=== PATIENT | male | born 1970 | race Caucasian/White ===

== ENCOUNTER 2017-11-11 11:08 | Emergency (ER) | payer OTHER ==
[~2017-11-11] VITALS: Ht 180.3 cm; Wt 84.6 kg
[2017-11-11 12:14] LABS: BASOPHILS # (AUTO) 0.1 X10'3 (0-0.2); BASOPHILS % (AUTO) 0.7 % (0-1); EOSINOPHILS # (AUTO) 0.1 X10'3 (0-0.9); EOSINOPHILS % (AUTO) 1.7 % (0-6); HEMATOCRIT 45.6 % (42.0-52.0); HEMOGLOBIN 15.6 g/dl (14.0-17.9); LYMPHOCYTES # (AUTO) 1.8 X10'3 (1.1-4.8); LYMPHOCYTES % (AUTO) 20.3 % (21-51); MEAN CORPUSCULAR HEMOGLOBIN 32.2 PG (27.0-31.0); MEAN CORPUSCULAR HGB CONC 34.1 % (33.0-36.5); MEAN CORPUSCULAR VOLUME 94.5 FL (78-98); MEAN PLATELET VOLUME 6.9 FL (7.4-10.4); MONOCYTES # (AUTO) 0.5 X10'3 (0-0.9); MONOCYTES % (AUTO) 5.2 % (2-12); NEUTROPHILS # (AUTO) 6.3 X10'3 (1.8-7.7); NEUTROPHILS % (AUTO) 72.1 % (42-75); PLATELET COUNT 309 X10'3 (140-440); RED BLOOD COUNT 4.83 X10'6 (4.70-6.10); RED CELL DISTRIBUTION WIDTH 12.6 % (11.5-14.5); WHITE BLOOD COUNT 8.7 X10'3 (4.5-11.0)
[2017-11-11 12:23] LABS: PARTIAL THROMBOPLASTIN TIME 30 SECONDS (22-32); PROTHROMBIN TIME 10.3 SECONDS (9.0-12.0)
[2017-11-11 12:29] LABS: ALANINE AMINOTRANSFERASE 29 U/L (12-78); ALBUMIN 3.9 G/DL (3.4-5.0); ALBUMIN/GLOBULIN RATIO 0.9 (1.1-1.5); ALKALINE PHOSPHATASE 102 IU/L (46-116); ANION GAP 11 (8-16); ASPARTATE AMINO TRANSFERASE 18 U/L (10-37); BILIRUBIN,TOTAL 0.5 MG/DL (0.1-1.0); BLOOD UREA NITROGEN 18 MG/DL (7-18); BUN/CREATININE RATIO 19.8 (5.4-32.0); CALCIUM 9.5 MG/DL (8.5-10.1); CHLORIDE 106 MMOL/L (99-107); CREATININE 0.91 MG/DL (0.60-1.10); GLUCOSE 89 MG/DL (70-104); SODIUM 141 MMOL/L (135-145); TOTAL CARBON DIOXIDE 24.5 MMOL/L (24-32); TOTAL PROTEIN 8.3 G/DL (6.4-8.2); eGFR 89 ML/MIN
[2017-11-11 13:31] VITALS: BP 115/97
== END 2017-11-11 13:33 | disposition home or self-care (01) ==
LOC: ER 11:09
DX: H93.13 Tinnitus, bilateral (principal)
CPT/HCPCS: 36415; 71045; 80053; 84484; 85025; 85610; 85730; 93005; 99285

== ENCOUNTER 2018-06-16 08:31 | Outpatient (CLI) | payer OTHER ==
[2018-06-16 09:12] LABS: CLARITY,URINE CLEAR (Clear); COLOR,URINE YELLOW (Yellow); GLUCOSE, URINE NEGATIVE (Neg); KETONES,URINE NEGATIVE (Neg); LEUKOCYTE ESTERASE ,URINE NEGATIVE (Neg); NITRITES, URINE NEGATIVE (Neg); OCCULT BLOOD,URINE NEGATIVE (Neg); PROTEIN,URINE NEGATIVE (Neg); UROBILINOGEN,URINE 0.2 E.U/dL (0.2-1.0)
[2018-06-16 09:13] LABS: UA COLLECTION TYPE VOIDED
[2018-06-16 09:26] LABS: BASOPHILS # (AUTO) 0.1 X10'3 (0-0.2); BASOPHILS % (AUTO) 0.9 % (0-1); EOSINOPHILS # (AUTO) 0.2 X10'3 (0-0.9); EOSINOPHILS % (AUTO) 2.4 % (0-6); HEMATOCRIT 44.6 % (42.0-52.0); HEMOGLOBIN 15.3 g/dl (14.0-17.9); LYMPHOCYTES # (AUTO) 2.1 X10'3 (1.1-4.8); LYMPHOCYTES % (AUTO) 24.6 % (21-51); MEAN CORPUSCULAR HEMOGLOBIN 32.6 PG (27.0-31.0); MEAN CORPUSCULAR HGB CONC 34.3 % (33.0-36.5); MEAN CORPUSCULAR VOLUME 94.9 FL (78-98); MEAN PLATELET VOLUME 6.9 FL (7.4-10.4); MONOCYTES # (AUTO) 0.6 X10'3 (0-0.9); MONOCYTES % (AUTO) 6.8 % (2-12); NEUTROPHILS # (AUTO) 5.4 X10'3 (1.8-7.7); NEUTROPHILS % (AUTO) 65.3 % (42-75); PLATELET COUNT 338 X10'3 (140-440); RED BLOOD COUNT 4.71 X10'6 (4.70-6.10); RED CELL DISTRIBUTION WIDTH 12.1 % (11.5-14.5); WHITE BLOOD COUNT 8.4 X10'3 (4.5-11.0)
[2018-06-16 09:36] LABS: ALANINE AMINOTRANSFERASE 33 U/L (12-78); ALBUMIN 3.7 G/DL (3.4-5.0); ALBUMIN/GLOBULIN RATIO 0.9 (1.1-1.5); ALKALINE PHOSPHATASE 105 IU/L (46-116); ANION GAP 7 (8-16); ASPARTATE AMINO TRANSFERASE 20 U/L (10-37); BILIRUBIN,TOTAL 0.3 MG/DL (0.1-1.0); BLOOD UREA NITROGEN 15 MG/DL (7-18); CALCIUM 8.9 MG/DL (8.5-10.1); CHLORIDE 104 MMOL/L (99-107); CHOL/HDL RATIO 5.6 (0.00-4.99); CHOLESTEROL 247 MG/DL (0-200); CREATININE 0.88 MG/DL (0.60-1.10); GLUCOSE 104 MG/DL (70-104); HDL CHOLESTEROL 44 MG/DL (35-60); LDL CHOLESTEROL 183 MG/DL (50-100); POTASSIUM 4.1 MMOL/L (3.5-5.1); SODIUM 141 MMOL/L (135-145); TOTAL CARBON DIOXIDE 30.1 MMOL/L (24-32); TRIGLYCERIDES 118 MG/DL (20-135); eGFR > 90 ML/MIN
== END 2018-06-16 23:59 | disposition home or self-care (01) ==
LOC: LAB 08:31
PROVIDERS: ATTEND Family Medicine
DX: Z76.89 Persons encountering health services in other specified circumstances (principal); E78.5 Hyperlipidemia, unspecified; F17.200 Nicotine dependence, unspecified, uncomplicated
CPT/HCPCS: 36415; 80053; 80061; 81003; 84439; 84443; 85025

== ENCOUNTER 2018-09-22 08:19 | Outpatient (CLI) | payer OTHER ==
[2018-09-22 09:23] LABS: CHOL/HDL RATIO 4.9 (0.00-4.99); CHOLESTEROL 216 MG/DL (0-200); HDL CHOLESTEROL 44 MG/DL (35-60); LDL CHOLESTEROL 158 MG/DL (50-100); TRIGLYCERIDES 86 MG/DL (20-135)
== END 2018-09-22 23:59 | disposition home or self-care (01) ==
LOC: RAD 08:19
PROVIDERS: ATTEND Family Medicine
DX: S46.112A Strain of muscle, fascia and tendon of long head of biceps, left arm, initial encounter (principal); E78.5 Hyperlipidemia, unspecified; X58.XXXA Exposure to other specified factors, initial encounter; Y93.89 Activity, other specified; Y92.89 Other specified places as the place of occurrence of the external cause; Y99.8 Other external cause status
CPT/HCPCS: 36415; 73030; 80061

== ENCOUNTER 2018-11-11 12:38 | Outpatient (CLI) | payer OTHER | END 2018-11-11 23:59 | disposition home or self-care (01) | LOC: RAD 12:38 | PROVIDERS: ATTEND Family Medicine | DX: M25.521 Pain in right elbow (principal) | CPT/HCPCS: 73221 ==

== ENCOUNTER 2019-08-25 10:36 | Inpatient (IN) | payer OTHER ==
[2019-08-25] VITALS (17 sets, daily range): BP systolic 124–180; BP diastolic 71–109
[~2019-08-25] VITALS: Ht 172.7 cm; Wt 85.5 kg
[~2019-08-25 10:36] MED LIST: CYCL-1 PO; DULO30CA52 PO; HYDR-4383 PO; KETO10TA2 PO; amiodarone 50MG/ML inj IV ONE; aspirin 81mg tab.chew ONE; heparin 10,000 units/1 ML INJ ONE
[2019-08-25] MEDS ORDERED: ondansetron/PF 4mg/2ml inj IV ONE (10:45)
[2019-08-25] MEDS ORDERED: morphine 2 MG/ML inj. syringe IV ONE ×2 (10:45→23:15)
[2019-08-25] MEDS ORDERED: iohexol 350 MG/ML 50ML vial IV ONE (10:48)
[2019-08-25] MEDS ORDERED: heparin 1,000unit/ml 10ml vial 10 ML ONE (10:48)
[2019-08-25] MEDS ORDERED: LIDOcaine 1% (10mg/ml)w/preservative injection 20ml MDV ONE (10:48)
[2019-08-25] MEDS ORDERED: midazolam 2 mg/2 ml injection ONE (10:48)
[2019-08-25] MEDS ORDERED: iohexol 350 MG/1 ML 200ml bottle ONE (10:48)
[2019-08-25] MEDS ORDERED: nitroGLYCERIN-Tridil 50MG/D5W 250 ML IV ONE (10:48)
[2019-08-25] MEDS ORDERED: fentaNYL/PF 50MCG/1 ML 2ML syringe ONE ×3 (10:48→11:48)
--- NOTE | 2019-08-25 10:54 | NUR ---
PLACED PT. ON TRANSPORT MONITOR WITH PALLET REPAIRER PRESENT, PRIOR TO LEAVING ROOM 3, PT. WENT INTO VFIB AT 1054, PT. WAS SHOCKED AT 120J, PT. WAS SUSTAINING VFIB, SHOCKED AT 150J, PT. WAS STILL IN VFIB. SHOCKED 200J. PT. RHYTHM RETURNED. PER BAYLEE, GIVE 150MG OF AMIODARONE. PT. TAKEN TO FIRE INFORMATION OFFICER WITH TECH AND 2 RN'S. Addendum: 08/25/19 at 1119 by GEORGIE PALLET REPAIRER DELIVED THE SHOCKS.
[2019-08-25] MEDS ORDERED: heparin 10,000 units/1 ML INJ IV ONE (10:55)
[2019-08-25] MEDS ORDERED: atorvastatin 20mg tablet PO SCH (10:55)
[2019-08-25 10:59] LABS: BASOPHILS # (AUTO) 0.1 X10'3 (0-0.2); BASOPHILS % (AUTO) 0.7 % (0-1); EOSINOPHILS # (AUTO) 0.3 X10'3 (0-0.9); EOSINOPHILS % (AUTO) 2.5 % (0-6); HEMOGLOBIN 15.3 g/dl (14.0-17.9); LYMPHOCYTES # (AUTO) 3.2 X10'3 (1.1-4.8); LYMPHOCYTES % (AUTO) 24.8 % (21-51); MEAN CORPUSCULAR HEMOGLOBIN 32.7 PG (27.0-31.0); MEAN CORPUSCULAR HGB CONC 33.9 g/dL (33.0-36.5); MEAN CORPUSCULAR VOLUME 96.3 FL (78-98); MEAN PLATELET VOLUME 6.7 FL (7.4-10.4); MONOCYTES % (AUTO) 7.4 % (2-12); NEUTROPHILS # (AUTO) 8.4 X10'3 (1.8-7.7); NEUTROPHILS % (AUTO) 64.6 % (42-75); PLATELET COUNT 343 X10'3 (140-440); RED BLOOD COUNT 4.67 X10'6 (4.70-6.10); RED CELL DISTRIBUTION WIDTH 12.6 % (11.5-14.5)
[2019-08-25] MEDS ORDERED: amiodarone/D5 360MG/200ML BAG 200 ML IV ONE (11:01)
[2019-08-25 11:15] LABS: ALANINE AMINOTRANSFERASE 33 U/L (12-78); ALBUMIN 3.8 G/DL (3.4-5.0); ALBUMIN/GLOBULIN RATIO 0.9 (1.1-1.5); ALKALINE PHOSPHATASE 100 IU/L (46-116); ANION GAP 11 (8-16); ASPARTATE AMINO TRANSFERASE 19 U/L (10-37); BILIRUBIN,TOTAL 0.3 MG/DL (0.1-1.0); BLOOD UREA NITROGEN 13 MG/DL (7-18); BUN/CREATININE RATIO 13.4 (5.4-32.0); CALCIUM 9.2 MG/DL (8.5-10.1); CHLORIDE 104 MMOL/L (99-107); CREATININE 0.97 MG/DL (0.60-1.10); GLUCOSE 120 MG/DL (70-104); POTASSIUM 3.5 MMOL/L (3.5-5.1); SODIUM 139 MMOL/L (135-145); TOTAL CARBON DIOXIDE 24.2 MMOL/L (24-32); TOTAL PROTEIN 7.9 G/DL (6.4-8.2); eGFR 82 ML/MIN
[2019-08-25] MEDS ORDERED: tirofiban 12.5mg in NS 250mL 250 ML IV ONE (11:15)
[2019-08-25] MEDS ORDERED: heparin 25,000 UNIT/250ml bag 250 ML IV ONE (11:21)
[2019-08-25] MEDS ORDERED: atropine 0.1mg/ml 10ml syringe ONE (11:37)
[2019-08-25] MEDS ORDERED: iohexol 350MG/ML 100ml bottle IV ONE (11:45)
[2019-08-25] MEDS ORDERED: ticagrelor 90mg tablet ONE (11:50)
[2019-08-25] MEDS: heparin 25,000 UNIT/250ml bag 250 ML IV SCH ×8 (12:40→14:37)
[2019-08-25] MEDS ORDERED: normal saline 1000ml 1,000 ML IV SCH (12:40)
[2019-08-25] MEDS ORDERED: proCHLORperazine 10 MG/2 ml inj IV PRN (12:45)
[2019-08-25] MEDS ORDERED: acetaminophen 325mg tablet PO PRN (12:45)
[2019-08-25] MEDS ORDERED: OXAZEpam 15mg capsule PO PRN (12:45)
[2019-08-25] MEDS ORDERED: cyclobenzaprine 10mg tablet PO PRN (12:45)
[2019-08-25] MEDS ORDERED: magnesium hydroxide 30ml (MOM) UD suspension PO PRN (12:45)
[2019-08-25] MEDS: tirofiban 5mg in NS 100mL 100 ML IV SCH ×2 (12:50→22:09)
[2019-08-25] MEDS: HYDROcodone/acetaminophen 10/325mg tab PO PRN ×3 (12:52→19:42)
[2019-08-25] MEDS ORDERED: lisinopril 5mg tablet PO SCH (13:45)
[2019-08-25] MEDS ORDERED: hydrALAZINE 20mg/ml inj. IV PRN (13:45)
[2019-08-25] MEDS: metoprolol succinate 25mg (24-HOUR) SR. Tablet PO SCH (13:53)
[2019-08-25] MEDS: aspirin 81mg tab.chew PO SCH (14:18)
[2019-08-25] MEDS ORDERED: heparin 25,000 UNIT/250ml bag 250 ML IV SCH (15:05)
[2019-08-25] MEDS: amiodarone/D5 360MG/200ML BAG 200 ML IV SCH (16:01)
--- NOTE | 2019-08-25 18:33 | NUR ---
Problems reprioritized. Patient report given, questions answered & plan of care reviewed with Pranav WEST.
[2019-08-25] MEDS: ticagrelor 90mg tablet PO SCH (19:36)
[2019-08-25] MEDS: docusate sod 100mg capsule PO SCH (19:36)
[2019-08-26] VITALS (17 sets, daily range): BP systolic 100–148; BP diastolic 3–83
[2019-08-26] MEDS: HYDROcodone/acetaminophen 10/325mg tab PO PRN ×5 (00:20→16:46)
--- NOTE | 2019-08-26 00:58 | NUR ---
Heparin drip shut off at 2200. ACT checked- 125. Arterial sheath to right groin pulled at 2340. Manual pressure held for 20 min. Femstop applied at 0000. Upon removing dressing, prior to pulling sheath, a small hematoma was found. Patient tolerated procedure well. No bleeding.
[2019-08-26] MEDS: amiodarone/D5 360MG/200ML BAG 200 ML IV SCH (02:44)
[2019-08-26] MEDS: tirofiban 5mg in NS 100mL 100 ML IV SCH ×2 (03:58→10:27)
[2019-08-26 06:14] LABS: BASOPHILS % (AUTO) 0.2 % (0-1); EOSINOPHILS # (AUTO) 0.1 X10'3 (0-0.9); EOSINOPHILS % (AUTO) 0.8 % (0-6); HEMATOCRIT 39.9 % (42.0-52.0); HEMOGLOBIN 13.5 g/dl (14.0-17.9); LYMPHOCYTES # (AUTO) 1.5 X10'3 (1.1-4.8); LYMPHOCYTES % (AUTO) 11.7 % (21-51); MEAN CORPUSCULAR HEMOGLOBIN 32.5 PG (27.0-31.0); MEAN CORPUSCULAR HGB CONC 33.7 g/dL (33.0-36.5); MEAN CORPUSCULAR VOLUME 96.2 FL (78-98); MONOCYTES % (AUTO) 7.6 % (2-12); NEUTROPHILS # (AUTO) 10.1 X10'3 (1.8-7.7); NEUTROPHILS % (AUTO) 79.7 % (42-75); PLATELET COUNT 268 X10'3 (140-440); RED BLOOD COUNT 4.15 X10'6 (4.70-6.10); RED CELL DISTRIBUTION WIDTH 12.5 % (11.5-14.5); WHITE BLOOD COUNT 12.7 X10'3 (4.5-11.0)
[2019-08-26 06:38] LABS: ANION GAP 6 (8-16); CHLORIDE 107 MMOL/L (99-107); GLUCOSE 110 MG/DL (70-104); POTASSIUM 3.5 MMOL/L (3.5-5.1); SODIUM 138 MMOL/L (135-145); TOTAL CARBON DIOXIDE 25.1 MMOL/L (24-32)
[2019-08-26 06:39] LABS: ALBUMIN 3.1 G/DL (3.4-5.0); BLOOD UREA NITROGEN 10 MG/DL (7-18); BUN/CREATININE RATIO 10.9 (5.4-32.0); CALCIUM 8.2 MG/DL (8.5-10.1); CHOL/HDL RATIO 5.4 (0.00-4.99); CHOLESTEROL 223 MG/DL (0-200); CREATININE 0.92 MG/DL (0.60-1.10); HDL CHOLESTEROL 41 MG/DL (35-60); LDL CHOLESTEROL 170 MG/DL (50-100); TRIGLYCERIDES 100 MG/DL (20-135); eGFR 87 ML/MIN
--- NOTE | 2019-08-26 06:55 | NUR ---
Patient in room ICU 2039. I have received report from BRETT Rock and had the opportunity to ask questions and assume patient care.
[2019-08-26 07:12] LABS: TROPONIN I 53.13 NG/ML (0.0-0.05)
[2019-08-26] MEDS: docusate sod 100mg capsule PO SCH ×2 (07:57→20:24)
[2019-08-26] MEDS: metoprolol succinate 25mg (24-HOUR) SR. Tablet PO SCH (07:57)
[2019-08-26] MEDS ORDERED: lisinopril 5mg tablet PO SCH (08:00)
[2019-08-26] MEDS: ticagrelor 90mg tablet PO SCH ×2 (08:00→20:24)
[2019-08-26] MEDS ORDERED: atorvastatin 20mg tablet PO SCH ×2 (08:00)
[2019-08-26] MEDS ORDERED: metoprolol succinate 25mg (24-HOUR) SR. Tablet PO SCH (08:00)
[2019-08-26] MEDS: lisinopril 5mg tablet PO SCH (08:00)
[2019-08-26] MEDS: aspirin 81mg tab.chew PO SCH (08:30)
[2019-08-26 11:12] LABS: MAGNESIUM 1.8 MG/DL (1.5-2.4)
[2019-08-26] MEDS ORDERED: potassium Cl 20mEq/100mL bag 100 ML IV PRN (11:25)
[2019-08-26] MEDS ORDERED: magnesium 4gm in 100ml NS 100 ML IV PRN (11:25)
[2019-08-26] MEDS ORDERED: magnesium 2GM in 50ml NS 50 ML IV PRN (11:25)
[2019-08-26] MEDS ORDERED: magnesium Cl slow-release 64mg tablet PO PRN (12:00)
[2019-08-26] MEDS: potassium Cl 20 mEq SR tablet PO PRN (12:10)
[2019-08-26] MEDS ORDERED: NO HOME MEDS (12:12)
--- NOTE | 2019-08-26 15:20 | NUR ---
Patient in room MED 320. I have received report from Ca WEST from ICU and had the opportunity to ask questions and assume patient care.
--- NOTE | 2019-08-26 15:30 | NUR ---
Pt was transported to [facility] via WC and report was given to BRETT Tatum
--- NOTE | 2019-08-26 15:30 | NUR ---
Pt received from Ca szymanski. R groin Cath site checked with her and agree that site is free from hematoma, or bleeding, and is soft to touch. Pulses present in LE's, and sensation intact. Lungs CTA, BS x4, VSS, and denies any pain at this time. He denies any SOB or CP. No distress or any changes from ICU nurse report.
--- NOTE | 2019-08-26 15:30 | NUR ---
BAYLEE UPDATED: PATIENT HEART RHYTHM GOING IN/OUT SB/JUNCTIONAL. NEW ORDER RECEIVED: HOLD METOPROLOL IN AM. RESUME METOPROLOL SUCCINATE 12.5MG Q DAILY ON Thursday08/28/19
--- NOTE | 2019-08-26 17:10 | NUR ---
PATIENT HAS ALLERGY TO ATORVASTATIN. NEEDS TO CHANGE TO SIMVASTATIN. CALLED PHARMACY AND THE EQUIVALENT DOSE OF SIMVASTATIN IS 80MG QHS. BAYLEE UPDATED AND ORDER CHANGED.
--- NOTE | 2019-08-26 18:30 | NUR ---
Problems reprioritized. Patient report given, questions answered & plan of care reviewed with Bill RN.
--- NOTE | 2019-08-26 19:12 | NUR ---
Patient in room MED 320. I have received report from Em WEST and had the opportunity to ask questions and assume patient care.
[2019-08-27 02:00] VITALS: BP 95/64
[2019-08-27 06:00] LABS: BASOPHILS % (AUTO) 0.4 % (0-1); EOSINOPHILS # (AUTO) 0.2 X10'3 (0-0.9); EOSINOPHILS % (AUTO) 1.7 % (0-6); HEMATOCRIT 39.2 % (42.0-52.0); HEMOGLOBIN 13.6 g/dl (14.0-17.9); LYMPHOCYTES # (AUTO) 1.8 X10'3 (1.1-4.8); MEAN CORPUSCULAR HEMOGLOBIN 33.4 PG (27.0-31.0); MEAN CORPUSCULAR HGB CONC 34.7 g/dL (33.0-36.5); MEAN CORPUSCULAR VOLUME 96.2 FL (78-98); MEAN PLATELET VOLUME 7.1 FL (7.4-10.4); MONOCYTES # (AUTO) 0.8 X10'3 (0-0.9); MONOCYTES % (AUTO) 7.4 % (2-12); NEUTROPHILS # (AUTO) 7.9 X10'3 (1.8-7.7); NEUTROPHILS % (AUTO) 73.5 % (42-75); PLATELET COUNT 243 X10'3 (140-440); RED BLOOD COUNT 4.08 X10'6 (4.70-6.10); RED CELL DISTRIBUTION WIDTH 12.7 % (11.5-14.5); WHITE BLOOD COUNT 10.7 X10'3 (4.5-11.0)
[2019-08-27 06:09] LABS: ALBUMIN 3.2 G/DL (3.4-5.0); ANION GAP 9 (8-16); BLOOD UREA NITROGEN 10 MG/DL (7-18); BUN/CREATININE RATIO 10.6 (5.4-32.0); CALCIUM 8.5 MG/DL (8.5-10.1); CHLORIDE 106 MMOL/L (99-107); CREATININE 0.94 MG/DL (0.60-1.10); GLUCOSE 93 MG/DL (70-104); POTASSIUM 3.9 MMOL/L (3.5-5.1); SODIUM 139 MMOL/L (135-145); TOTAL CARBON DIOXIDE 24.4 MMOL/L (24-32); eGFR 85 ML/MIN
[2019-08-27 06:11] LABS: TROPONIN I 17.66 NG/ML (0.0-0.05)
--- NOTE | 2019-08-27 06:15 | NUR ---
Patient in room MED 320. I have received report from Bill WEST and had the opportunity to ask questions and assume patient care.
[2019-08-27 06:30] VITALS: BP 115/52
--- NOTE | 2019-08-27 06:37 | NUR ---
Problems reprioritized. Patient report given, questions answered & plan of care reviewed with Domi WEST.
[2019-08-27] MEDS: ticagrelor 90mg tablet PO SCH (08:59)
[2019-08-27] MEDS: docusate sod 100mg capsule PO SCH (08:59)
[2019-08-27] MEDS: aspirin 81mg tab.chew PO SCH (09:00)
[2019-08-27] MEDS: lisinopril 5mg tablet PO SCH (09:00)
[2019-08-27] MEDS: potassium Cl 20 mEq SR tablet PO PRN (09:00)
[2019-08-27] MEDS ORDERED: ASPI-1265 PO (11:16)
[2019-08-27] MEDS ORDERED: LISI-642 PO (11:16)
[2019-08-27] MEDS ORDERED: METO-395 PO (11:16)
[2019-08-27] MEDS ORDERED: TICA90TA PO (11:16)
[2019-08-27] MEDS ORDERED: ROSU20TA2 PO (11:19)
[2019-08-27 11:30] VITALS: BP 117/78
--- NOTE | 2019-08-27 13:20 | NUR ---
Discussed discharge instructions with patient, verbalized understanding, eager to go home. Belongings sent with patient, at bedside for instructions. Brillinta coupon given, medications sent to [facility]. Sent Cardiac stent information. IV removed, cathlon intact. Tele removed. Escorted to family private vehicle via ambulation, tolerated well without event. Denies CP or headache, some discomfort to right groin noted however denies need for medication. Thankful for the staff and timing of his episode.
--- NOTE | 2019-08-27 15:38 | NUR ---
Cardiac consult: Pt s/p coronary stenting with elevated CHOL 223 and LDL 170. Pt discharged prior to RD being available for bedside visit. Written heart healthy diet education and RD contact information sent by mail to home address found in EMR. Addendum: 08/27/19 at [address] Amended: Links added.
[2019-08-28] MEDS ORDERED: metoprolol succinate 25mg (24-HOUR) SR. Tablet PO SCH (08:00)
[2019-08-28] MEDS ORDERED: FLU VACC QS 2019-20 (6 MOS UP) 60 MCG/0.5 ML VIAL IMVAC ONE (10:00)
== END 2019-08-27 13:20 | disposition home or self-care (01) | DRG 246 ==
LOC: ER 10:36 → ICU 2S 12:33 → MED 3N 08-26 14:08
PROVIDERS: ADMIT Internal Medicine Cardiovascular Disease; ATTEND Internal Medicine Cardiovascular Disease
PROC: 4A023N7 Measurement of Cardiac Sampling and Pressure, Left Heart, Percutaneous Approach (ICD-10-PCS; principal; 2019-08-25)
PROC: 027034Z Dilation of Coronary Artery, One Artery with Drug-eluting Intraluminal Device, Percutaneous Approach (ICD-10-PCS; 2019-08-25)
PROC: B2111ZZ Fluoroscopy of Multiple Coronary Arteries using Low Osmolar Contrast (ICD-10-PCS; 2019-08-25)
PROC: B2151ZZ Fluoroscopy of Left Heart using Low Osmolar Contrast (ICD-10-PCS; 2019-08-25)
DX: I21.19 ST elevation (STEMI) myocardial infarction involving other coronary artery of inferior wall (principal); I49.01 Ventricular fibrillation; I47.2 Ventricular tachycardia; E78.5 Hyperlipidemia, unspecified; F12.90 Cannabis use, unspecified, uncomplicated; I25.10 Atherosclerotic heart disease of native coronary artery without angina pectoris; F17.200 Nicotine dependence, unspecified, uncomplicated; Z71.6 Tobacco abuse counseling; Z95.5 Presence of coronary angioplasty implant and graft
CPT/HCPCS: 93458; 99291; C9606; 36415; 71045; 80048; 80053; 80061; 83735; 84484; 85025; 85347; 85730; 93005; 99152; 99153; A4620; A6258; C1725; C1769; C1874; G0378; J0282; J0360; J0461; J1644; J2001; J2250; J2270; J2405; J3010; J3246; J3475; J3490; J7030; Q9967

== ENCOUNTER 2019-09-19 21:26 | Observation (INO) | payer OTHER ==
[~2019-09-19] VITALS: Ht 180.3 cm; Wt 81.9 kg
[~2019-09-19 21:26] MED LIST changes: +ASPI-1265 PO; -CYCL-1 PO; -DULO30CA52 PO; -HYDR-4383 PO; -KETO10TA2 PO; +LISI-642 PO; +METO-395 PO; +ROSU20TA2 PO; +TICA90TA PO; -amiodarone 50MG/ML inj IV ONE; -aspirin 81mg tab.chew ONE; -heparin 10,000 units/1 ML INJ ONE
[2019-09-19] MEDS ORDERED: SERT-153 PO (21:33)
[2019-09-19] MEDS ORDERED: MAGN400C PO (21:33)
--- NOTE | 2019-09-19 21:41 | NUR ---
DR. Hay at bedside assessing patient, PATIENT STATES " PAIN HAS IMPROVED."
[2019-09-19] MEDS ORDERED: aspirin 81mg tab.chew PO ONE (21:50)
[2019-09-19] MEDS ORDERED: normal saline 1000ML IV soln IVB ONE (21:50)
[2019-09-19] MEDS ORDERED: nitroGLYCERIN 0.4mg/hour patch TD ONE (21:50)
[2019-09-19 21:51] LABS: ALANINE AMINOTRANSFERASE 33 U/L (12-78); ALBUMIN 3.5 G/DL (3.4-5.0); ALBUMIN/GLOBULIN RATIO 0.9 (1.1-1.5); ALKALINE PHOSPHATASE 91 IU/L (46-116); ANION GAP 7 (8-16); ASPARTATE AMINO TRANSFERASE 17 U/L (10-37); BASOPHILS # (AUTO) 0.1 X10'3 (0-0.2); BASOPHILS % (AUTO) 0.9 % (0-1); BILIRUBIN,TOTAL 0.1 MG/DL (0.1-1.0); BLOOD UREA NITROGEN 14 MG/DL (7-18); BUN/CREATININE RATIO 14.6 (5.4-32.0); CALCIUM 8.7 MG/DL (8.5-10.1); CHLORIDE 105 MMOL/L (99-107); CREATININE 0.96 MG/DL (0.60-1.10); EOSINOPHILS # (AUTO) 0.2 X10'3 (0-0.9); EOSINOPHILS % (AUTO) 1.6 % (0-6); GLUCOSE 128 MG/DL (70-104); HEMATOCRIT 40.4 % (42.0-52.0); HEMOGLOBIN 13.7 g/dl (14.0-17.9); LYMPHOCYTES # (AUTO) 2.6 X10'3 (1.1-4.8); MEAN CORPUSCULAR HEMOGLOBIN 32.3 PG (27.0-31.0); MEAN PLATELET VOLUME 6.9 FL (7.4-10.4); MONOCYTES # (AUTO) 0.6 X10'3 (0-0.9); MONOCYTES % (AUTO) 5.5 % (2-12); NEUTROPHILS # (AUTO) 8.3 X10'3 (1.8-7.7); PLATELET COUNT 271 X10'3 (140-440); POTASSIUM 3.7 MMOL/L (3.5-5.1); RED BLOOD COUNT 4.25 X10'6 (4.70-6.10); RED CELL DISTRIBUTION WIDTH 12.3 % (11.5-14.5); SODIUM 138 MMOL/L (135-145); TOTAL PROTEIN 7.3 G/DL (6.4-8.2); WHITE BLOOD COUNT 11.8 X10'3 (4.5-11.0); eGFR 83 ML/MIN
--- NOTE | 2019-09-19 22:14 | NUR ---
3 HR TROP DUE AT 0030, DR. JONAS ANTICIPATES ADMISSION. TALKING WITH PT AND . HR 57 AND BP 106/67. DENIES ANY CP.
[2019-09-19] MEDS ORDERED: LISI-600 PO (22:35)
[2019-09-19] MEDS ORDERED: ASPI-1265 PO (22:35)
[2019-09-19] MEDS ORDERED: ROSU20TA2 PO (22:37)
[2019-09-19] MEDS ORDERED: TICA90TA PO (22:37)
[2019-09-19] MEDS ORDERED: METO-539 PO (22:37)
[2019-09-19 22:53] LABS: PARTIAL THROMBOPLASTIN TIME 26 SECONDS (22-32)
[2019-09-19] MEDS ORDERED: magnesium hydroxide 30ml (MOM) UD suspension PO PRN (22:55)
[2019-09-19] MEDS ORDERED: acetaminophen 325mg tablet PO PRN ×2 (22:55)
[2019-09-19] MEDS ORDERED: HYDROcodone/acetaminophen 5mg/325mg tablet PO PRN (22:55)
[2019-09-19] MEDS ORDERED: morphine 2 MG/ML inj. syringe IV PRN ×2 (22:55)
[2019-09-19] MEDS ORDERED: nitroGLYCERIN 0.4mg SUBLingual tab SL PRN (22:55)
[2019-09-19] MEDS ORDERED: ondansetron/PF 4mg/2ml inj IV PRN (22:55)
[2019-09-19] MEDS ORDERED: mag hydrox/Alum hydrox/simeth 30ml oral suspension PO PRN (22:55)
--- NOTE | 2019-09-19 22:56 | NUR ---
Asked by nursing sup to review chart for possible admission to unit.
[2019-09-19 22:58] LABS: MAGNESIUM 1.9 MG/DL (1.5-2.4)
--- NOTE | 2019-09-19 23:11 | NUR ---
REPORT CALLED TO JOUSÉ WEST NO QUESTIONS OR CONCERNS AFTER ASSUMING CARE PATIENTS BELONGINGS WENT HOME WITH PATIENTS FAMILY
[2019-09-19 23:28] VITALS: BP 107/67
[2019-09-20 02:00] VITALS: BP 97/64
--- NOTE | 2019-09-20 03:00 | NUR ---
Spoke to Dr. Hicks regarding patient's EKG to verify he saw the abnormalities in the ST segment. He said he is aware.
[2019-09-20 04:01] LABS: BASOPHILS # (AUTO) 0.1 X10'3 (0-0.2); BASOPHILS % (AUTO) 0.8 % (0-1); EOSINOPHILS # (AUTO) 0.1 X10'3 (0-0.9); EOSINOPHILS % (AUTO) 1.2 % (0-6); HEMATOCRIT 38.7 % (42.0-52.0); HEMOGLOBIN 13.1 g/dl (14.0-17.9); LYMPHOCYTES # (AUTO) 2.5 X10'3 (1.1-4.8); LYMPHOCYTES % (AUTO) 22.2 % (21-51); MEAN CORPUSCULAR HEMOGLOBIN 31.7 PG (27.0-31.0); MEAN CORPUSCULAR HGB CONC 33.9 g/dL (33.0-36.5); MEAN CORPUSCULAR VOLUME 93.5 FL (78-98); MONOCYTES # (AUTO) 0.6 X10'3 (0-0.9); MONOCYTES % (AUTO) 5.3 % (2-12); NEUTROPHILS # (AUTO) 7.9 X10'3 (1.8-7.7); NEUTROPHILS % (AUTO) 70.5 % (42-75); PLATELET COUNT 257 X10'3 (140-440); RED BLOOD COUNT 4.13 X10'6 (4.70-6.10); RED CELL DISTRIBUTION WIDTH 12.6 % (11.5-14.5); WHITE BLOOD COUNT 11.3 X10'3 (4.5-11.0)
[2019-09-20 04:11] LABS: ALBUMIN 3.2 G/DL (3.4-5.0); ANION GAP 9 (8-16); BLOOD UREA NITROGEN 14 MG/DL (7-18); BUN/CREATININE RATIO 16.1 (5.4-32.0); CALCIUM 8.5 MG/DL (8.5-10.1); CHLORIDE 110 MMOL/L (99-107); CREATININE 0.87 MG/DL (0.60-1.10); GLUCOSE 94 MG/DL (70-104); POTASSIUM 4.1 MMOL/L (3.5-5.1); SODIUM 143 MMOL/L (135-145); TOTAL CARBON DIOXIDE 23.9 MMOL/L (24-32); eGFR > 90 ML/MIN
[2019-09-20 06:00] VITALS: BP 107/68
--- NOTE | 2019-09-20 06:20 | NUR ---
Problems reprioritized. Patient report given, questions answered & plan of care reviewed with Coco WEST.
[2019-09-20] MEDS ORDERED: magnesium oxide 400mg tablet PO SCH (08:00)
[2019-09-20] MEDS ORDERED: ticagrelor 90mg tablet PO SCH (08:00)
[2019-09-20] MEDS ORDERED: metoprolol succinate 25mg (24-HOUR) SR. Tablet PO SCH (08:00)
[2019-09-20] MEDS ORDERED: lisinopril 10 MG tablet PO SCH (08:00)
[2019-09-20] MEDS ORDERED: aspirin 81mg tab.chew PO SCH (08:00)
[2019-09-20] MEDS ORDERED: aspirin 81mg tablet.DR PO SCH (08:00)
[2019-09-20] MEDS ORDERED: atorvastatin 10mg tablet PO SCH (08:00)
[2019-09-20] MEDS ORDERED: sertraline 50mg tablet PO SCH (08:00)
[2019-09-20] MEDS ORDERED: FLU VACC QS2019-20 36MOS UP/PF 60 MCG/0.5 ML SYRINGE IMVAC ONE (10:00)
[2019-09-20 11:00] VITALS: BP 100/67
[2019-09-20] MEDS ORDERED: NITR0.4T51 SL (12:06)
--- NOTE | 2019-09-20 12:45 | NUR ---
PROVIDED PATIENT WITH DISCHARGE INSTRUCTIONS WELL NEW PRESCRIPTION INFORMATION AND DIRECTIONS. PATIENT VERBALIZES UNDERSTANDING AND PLANS TO FOLLOW UP WITH PCP AND HAS AN APPOINTMENT WITH DR. BEACH ALREADY FOR NEXT WEEK. BOTH IVS REMOVED, CATHETER INTACT, WITH MINIMAL BLEEDING CLEAN GAUZE APPLIED AND SECURED WITH TAPE. PT DENIES ANY FURTHER QUESTIONS OR CONCERNS, AND IS WAITING FOR HIS RIDE TO ARRIVE TO TAKE HIM HOME.
== END 2019-09-20 13:15 | disposition home or self-care (01) ==
LOC: ER 21:26 → ED HOLD 22:54 → INTOOBSV 22:54 → EDBEDREQSVC 23:03 → MED 3N 23:25
PROVIDERS: ADMIT Internal Medicine; ATTEND Family Medicine
DX: R07.89 Other chest pain (principal); I25.10 Atherosclerotic heart disease of native coronary artery without angina pectoris; I25.2 Old myocardial infarction; E78.5 Hyperlipidemia, unspecified; E78.00 Pure hypercholesterolemia, unspecified; F41.9 Anxiety disorder, unspecified; R06.02 Shortness of breath; R11.0 Nausea; F32.9 Major depressive disorder, single episode, unspecified; Z87.442 Personal history of urinary calculi; Z87.891 Personal history of nicotine dependence; Z95.5 Presence of coronary angioplasty implant and graft; Z79.82 Long term (current) use of aspirin; Z79.899 Other long term (current) drug therapy; Z88.8 Allergy status to other drugs, medicaments and biological substances
CPT/HCPCS: 36415; 71045; 80048; 80053; 83735; 83880; 84484; 85025; 85379; 85610; 85730; 87081; 93005; 99291; G0378; Q2037

== ENCOUNTER 2019-09-30 08:56 | Outpatient (CLI) | payer OTHER ==
[~2019-09-30 08:56] MED LIST changes: +LISI-600 PO; -LISI-642 PO; +MAGN400C PO; -METO-395 PO; +METO-539 PO; +NITR0.4T51 SL; +SERT-153 PO
[2019-09-30 10:16] LABS: ALANINE AMINOTRANSFERASE 38 U/L (12-78); ALBUMIN 3.7 G/DL (3.4-5.0); ALBUMIN/GLOBULIN RATIO 0.9 (1.1-1.5); ALKALINE PHOSPHATASE 107 IU/L (46-116); ASPARTATE AMINO TRANSFERASE 16 U/L (10-37); BILIRUBIN,TOTAL 0.4 MG/DL (0.1-1.0); BLOOD UREA NITROGEN 15 MG/DL (7-18); BUN/CREATININE RATIO 15.5 (5.4-32.0); CALCIUM 9.1 MG/DL (8.5-10.1); CHLORIDE 105 MMOL/L (99-107); CHOL/HDL RATIO 2.5 (0.00-4.99); CHOLESTEROL 113 MG/DL (0-200); CREATININE 0.97 MG/DL (0.60-1.10); GLUCOSE 93 MG/DL (70-104); HDL CHOLESTEROL 46 MG/DL (35-60); LDL CHOLESTEROL 57 MG/DL (50-100); TOTAL CARBON DIOXIDE 29.5 MMOL/L (24-32); TOTAL PROTEIN 7.8 G/DL (6.4-8.2); TRIGLYCERIDES 54 MG/DL (20-135); eGFR 82 ML/MIN
[2019-09-30 11:19] LABS: ANION GAP 7 (8-16); SODIUM 141 MMOL/L (135-145)
== END 2019-09-30 23:59 | disposition home or self-care (01) ==
LOC: LAB 08:56
PROVIDERS: ATTEND Physician Assistant Medical
DX: E78.5 Hyperlipidemia, unspecified (principal)
CPT/HCPCS: 36415; 80053; 80061

== ENCOUNTER 2019-10-03 09:51 | Day surgery (SDC) | payer OTHER ==
[~2019-10-03] VITALS: Ht 177.8 cm; Wt 80.9 kg
[2019-10-03] VITALS (11 sets, daily range): BP systolic 114–134; BP diastolic 73–80
[2019-10-03] MEDS ORDERED: normal saline 1,000 ML IV SCH (10:25)
[2019-10-03] MEDS ORDERED: LORazepam 0.5 MG tablet PO PRN (10:25)
[2019-10-03] MEDS ORDERED: diphenhydrAMINE 25mg capsule PO PRN (10:25)
[2019-10-03] MEDS ORDERED: LIDOcaine/PRILOcaine 5gm cream TP ONE (10:50)
[2019-10-03] MEDS ORDERED: METO25TA6 PO (10:57)
[2019-10-03 11:01] LABS: BASOPHILS # (AUTO) 0.1 X10'3 (0-0.2); EOSINOPHILS # (AUTO) 0.2 X10'3 (0-0.9); EOSINOPHILS % (AUTO) 1.7 % (0-6); HEMATOCRIT 40.4 % (42.0-52.0); HEMOGLOBIN 14.1 g/dl (14.0-17.9); LYMPHOCYTES # (AUTO) 1.3 X10'3 (1.1-4.8); MEAN CORPUSCULAR HEMOGLOBIN 32.6 PG (27.0-31.0); MEAN CORPUSCULAR VOLUME 93.2 FL (78-98); MEAN PLATELET VOLUME 6.7 FL (7.4-10.4); MONOCYTES # (AUTO) 0.6 X10'3 (0-0.9); MONOCYTES % (AUTO) 6.3 % (2-12); NEUTROPHILS # (AUTO) 7.8 X10'3 (1.8-7.7); PLATELET COUNT 290 X10'3 (140-440); RED BLOOD COUNT 4.33 X10'6 (4.70-6.10); RED CELL DISTRIBUTION WIDTH 12.4 % (11.5-14.5); WHITE BLOOD COUNT 10.1 X10'3 (4.5-11.0)
[2019-10-03 11:15] LABS: PARTIAL THROMBOPLASTIN TIME 31 SECONDS (22-32)
[2019-10-03 11:18] LABS: ALBUMIN 3.7 G/DL (3.4-5.0); ANION GAP 9 (8-16); BLOOD UREA NITROGEN 12 MG/DL (7-18); BUN/CREATININE RATIO 12.9 (5.4-32.0); CALCIUM 9.5 MG/DL (8.5-10.1); CHLORIDE 105 MMOL/L (99-107); CREATININE 0.93 MG/DL (0.60-1.10); GLUCOSE 95 MG/DL (70-104); SODIUM 140 MMOL/L (135-145); TOTAL CARBON DIOXIDE 25.8 MMOL/L (24-32); eGFR 86 ML/MIN
[2019-10-03] MEDS ORDERED: midazolam 2 mg/2 ml injection ONE (14:28)
[2019-10-03] MEDS ORDERED: heparin 1,000unit/ml 10ml vial 10 ML ONE (14:28)
[2019-10-03] MEDS ORDERED: LIDOcaine 1% (10mg/ml)w/preservative injection 20ml MDV ONE (14:28)
[2019-10-03] MEDS ORDERED: fentaNYL/PF 50MCG/1 ML 2ML syringe ONE (14:28)
[2019-10-03] MEDS ORDERED: iohexol 350 MG/1 ML 200ml bottle ONE (14:28)
[2019-10-03] MEDS ORDERED: nitroGLYCERIN-Tridil 50MG/D5W 250 ML IV ONE (14:29)
[2019-10-03] MEDS ORDERED: verapamil 2.5 mg/ml inj IV ONE (14:38)
[2019-10-03] MEDS ORDERED: heparin 25,000 UNIT/250ml bag 250 ML IV ONE (15:02)
[2019-10-03] MEDS ORDERED: heparin 1,000 UNITS/NS 500ml 500 ML ONE (15:30)
[2019-10-03] MEDS ORDERED: ticagrelor 90mg tablet ONE (15:51)
[2019-10-03] MEDS ORDERED: normal saline 1000ml 1,000 ML IV SCH (16:30)
[2019-10-03] MEDS ORDERED: aspirin 81mg tab.chew PO SCH (16:37)
[2019-10-03] MEDS ORDERED: heparin 25,000 UNIT/250ml bag 250 ML IV SCH (16:38)
[2019-10-03] MEDS ORDERED: HYDROcodone/acetaminophen 10/325mg tab PO PRN ×2 (16:40)
[2019-10-03] MEDS ORDERED: heparin 10,000 units/1 ML INJ IV ONE (16:40)
[2019-10-03] MEDS ORDERED: heparin 10,000 units/1 ML INJ IV PRN (16:40)
[2019-10-03] MEDS ORDERED: cyclobenzaprine 10mg tablet PO PRN (16:40)
[2019-10-03] MEDS ORDERED: proCHLORperazine 10 MG/2 ml inj IV PRN (16:40)
[2019-10-03] MEDS ORDERED: OXAZEpam 15mg capsule PO PRN (16:40)
[2019-10-03] MEDS ORDERED: acetaminophen 325mg tablet PO PRN (16:40)
[2019-10-03] MEDS ORDERED: magnesium hydroxide 30ml (MOM) UD suspension PO PRN (16:40)
[2019-10-03] MEDS ORDERED: docusate sod 100mg capsule PO SCH (20:00)
[2019-10-04] MEDS ORDERED: FLU VACC QS2019-20 36MOS UP/PF 60 MCG/0.5 ML SYRINGE IMVAC ONE (10:00)
[2019-10-04] MEDS ORDERED: pneumococcal 23-VAL P-sac vacc 25 mcg/0.5ml vial IMVAC ONE (10:00)
== END 2019-10-03 19:55 | disposition home or self-care (01) ==
LOC: SSTAY O 09:51
PROVIDERS: ATTEND Internal Medicine Cardiovascular Disease
DX: R07.9 Chest pain, unspecified (principal); I25.10 Atherosclerotic heart disease of native coronary artery without angina pectoris; E78.5 Hyperlipidemia, unspecified; I10 Essential (primary) hypertension; I25.2 Old myocardial infarction; F17.200 Nicotine dependence, unspecified, uncomplicated; Z79.82 Long term (current) use of aspirin; Z79.899 Other long term (current) drug therapy; Z98.890 Other specified postprocedural states; Z95.5 Presence of coronary angioplasty implant and graft; Z23 Encounter for immunization
CPT/HCPCS: 36415; 80048; 85025; 85347; 85610; 85730; 90471; 90732; 93005; 99152; 99153; C1725; C1769; C1874; C1892; C1894; C9600; J1644; J2001; J2250; J3010; J7030; Q0163; Q9967; A4620; A5120; J3490